=== PATIENT | male | born 1955 | race Caucasian/White ===

== ENCOUNTER 2021-06-13 12:21 | Emergency (ER) | payer MEDICARE, MEDICAID ==
[~2021-06-13] VITALS: Ht 170.2 cm; Wt 77.0 kg
[~2021-06-13 12:21] MED LIST: NICO-631 TD; NO HOME MEDS; calcium chloride 100 MG/1 ML inj IV ONE; dextrose 50%-water 50ml dispensing syringe IV ONE; epiNEPHrine 0.1mg/ml 10ml syringe ONE; etomidate 2mg/ml inj. ONE; rocuronium 10mg/ml inj IV ONE; sod chloride 0.9% 10ml flush syringe IV ONE; sodium bicarbonate (8.4%) 1 mEq/ml syringe ONE
--- NOTE | 2021-06-13 12:39 | NUR ---
MARLON HAWKINS [id number] ROOMMATE/FRIEND
--- NOTE | 2021-06-13 13:42 | NUR ---
1224: Pt arrived; CPR in progress. 1 Calcium, 1 amp bicard, and 1amp D50 administered. 1225: 1 epi given 1228: Pulse check 122/70; 100% igel; mottled skin; no pulse 1230: Spontaeous return of pulses 1233: HR 125 with pulses; 126/107; etCO2 36; 96% i-gel with bagging 1235: 1 epi given; HR 30; PEA 1241: pulse check, HR 143bpm with pulse. 83/59; etCO2 37 1243: Dr. Herrmann placing arterial line/Cordis catheter at bedside. 1245: HR 77bpm; 70/44; etCO2 31 1248: Pulse check, no palpable pulses. TOD called by NATA Herrmann.
[2021-06-13 13:48] VITALS: BP 107/67
== END 2021-06-13 18:09 ==
LOC: ER 12:22
DX: I46.9 Cardiac arrest, cause unspecified (principal); K92.2 Gastrointestinal hemorrhage, unspecified; K92.0 Hematemesis; J45.909 Unspecified asthma, uncomplicated; G89.29 Other chronic pain; Z72.89 Other problems related to lifestyle; Z86.19 Personal history of other infectious and parasitic diseases
CPT/HCPCS: 36556; 92950; 94799; 99285; J0171; 94760